=== PATIENT | female | born 1955 | race Two or more races ===

== ENCOUNTER 2017-06-26 06:04 | Day surgery (SDC) | payer OTHER ==
[2017-06-24 19:26] VITALS: BMI 48.8
[2017-06-26] MEDS ORDERED: PROPOFOL 20 ML ONE (07:47)
[2017-06-26] MEDS ORDERED: MIDAZOLAM HCL 2 MG/2 ML SINGLE DOSE VIAL ONE (07:47)
[2017-06-26] MEDS ORDERED: LIDOCAINE HCL/PF 2% SDV 5ML VIAL ONE (07:47)
--- NOTE | 2017-06-26 07:51 | HP ---
Past Medical History - Primary Care Physician PCP:: Roxana Chambers - Admission Chief Complaint: 61 yrs , h/o PMB on & off since november. continuous bleeding presently for last 7 days History of Present Illness: h/o menopause 10 years ago. ptc/o vaginal bleeding on & off since month of November us was done , was reported ut 7..4x3.7x 5x.1 cm. em thickness 1.7 cm , both adnexa normal EM BX was attempted as an outpatient was failed , v she is not sexually active. + History Source: Patient Limitations to Obtaining History: Language Barrier (daughter interprets .. pt is from [place]) - Past Medical History [employer]W: No: Alzheimer's, CVA, Dementia, Migraine, Multiple Sclerosis, Peripheral Neuropathy, Parkinson's, Seizure, Syncope, TIA, Vertigo, Other Cardiovascular: Yes: HTN, Hyperlipdemia Pulmonary: No: Asthma, Bronchitis, Cancer, COPD, O2 Dependent, Pneumonia, Previously Intubated, Pulmonary Embolus, Pulmonary Fibrosis, Sleep Apnea, Other Gastrointestinal: No: Ascites, Cancer, Constipation, Crohn's Disease, Diverticulitis, Diverticulosis, Esophageal Varices, Gastritis, GERD, GI Bleed, Hemorrhoids, Hiatal Hernia, Inflamatory Bowel Disease, Irritable Bowel Disease, Pancreatitis, Peptic Ulcer Disease, Ulcerative Colitis, Other Hepatobiliary: Yes: Cholelithiasis (lap choly done) Renal/: Yes: UTI (rx nitrofurantoin) Reproductive: Yes: Other ([facility] 05[facility]07[facility]17 [facility] ...: 5 ...Para: 4 ...Term: 4 ($ , LD 1985) ...Spon : 1 Heme/Onc: No: Anemia Infectious Disease: No: AIDS, HIV, Tuberculosis Psych: No: Addictions, Anxiety, Bipolar, Depression, Panic Endocrine: Yes: Other (Obesity) - Past Surgical History Past Surgical History: Yes: Cholecystectomy (lap choly 2008) Hx Myomectomy: No Hx Transabdominal Cerclage: No Additional Surgical History: Abdominoplasty 2001 in [place] - Smoking History Smoking history: Never smoked Have you smoked in the past 12 months: No - Alcohol/Substance Use Hx Alcohol Use: No History of Substance Use: reports: None Home Medications - Allergies Allergies/Adverse Reactions: Allergies Allergy/AdvReac Type Severity Reaction Status Date / Time No Known Drug Allergies Allergy Verified 06/26/17 06:47 - Home Medications Home Medications: Ambulatory Orders Aspirin Coated [Ecotrin -] 81 mg PO DAILY 06/24/17 Atenolol [Tenormin -] 50 mg PO DAILY 06/24/17 Enalapril Maleate [Vasotec -] 10 mg PO BID 06/24/17 Nitrofurantoin Monohyd/M-Cryst [Macrobid -] 100 mg PO BID 06/24/17 Acetaminophen [Tylenol .Regular Strength -] 650 mg PO Q4H PRN tablet 06/26/17 Physical Exam-WHITESMITH Vital Signs: Vital Signs Temperature 97.6 F 06/26/17 06:44 Pulse Rate 58 L 06/26/17 06:44 Respiratory Rate 20 06/26/17 06:44 Blood Pressure 151/70 06/26/17 06:44 O2 Sat by Pulse Oximetry (%) 99 06/26/17 06:43 Constitutional: Yes: Well Nourished, Obese Eyes: Yes: WNL HENT: Yes: WNL, Normocephalic Neck: Yes: WNL Cardiovascular: Yes: WNL, Regular Rate and Rhythm Respiratory: Yes: WNL, CTA Bilaterally Gastrointestinal: Yes: WNL, Normal Bowel Sounds ...Rectal Exam: Yes: WNL Pelvis: Yes: WNL. No: Mass External Genitalia: Yes: Normal Internal Exam Deferred: Yes Vaginal Exam: Yes: Normal, Bleeding Cervix: Yes: Normal, Bleeding Uterus: Yes: Normal, Freely Moveable, Anteverted. No: Tender Adnexa: Normal: Bilateral, Not Palpable: Bilateral (not tender) Breast(s): Yes: WNL. No: Mass Musculoskeletal: Yes: WNL Extremities: No: Calf Tenderness Edema: No Integumentary: Yes: Incision (abdominoplasty scar in lower abdomen) Neurological: Yes: WNL, Alert, Oriented ...Motor Strength: WNL Psychiatric: Yes: WNL, Alert, Oriented Problem List - Problem (1) Post-menopausal bleeding Code(s): N95.0 - POSTMENOPAUSAL BLEEDING (2) Hypertension Code(s): I10 - ESSENTIAL (PRIMARY) HYPERTENSION Qualifiers: Hypertension type: essential hypertension Qualified Code(s): I10 - Essential (primary) hypertension (3) Morbid obesity due to excess calories Code(s): E66.01 - MORBID (SEVERE) OBESITY DUE TO EXCESS CALORIES Assessment/Plan 61 yrs , PMB , em thickness 1.7 cm , h/o Ess hypertension, Obesity Plan Diagnostic Hysteroscopy, D&C
[2017-06-26] MEDS ORDERED: IBUPROFEN 400 MG TABLET (FP) PO PRN (08:45)
[2017-06-26] MEDS ORDERED: ACETAMINOPHEN 325 MG TABLET (FP) PO PRN (08:45)
[2017-06-26] MEDS ORDERED: IBUPROFEN 800 MG/8 ML IJ IVPB PRN (08:50)
[2017-06-26] MEDS ORDERED: oxyCODONE HCL 5 MG TABLET PO PRN (08:50)
[2017-06-26] MEDS ORDERED: ONDANSETRON 4 MG/2 ML VIAL IVPUSH PRN (08:50)
[2017-06-26] MEDS ORDERED: LACTATED RINGERS SOLUTION 1,000 ML IV SCH (09:00)
--- NOTE | 2017-06-26 09:01 | OP ---
Operative Note - Note: Operative Date: 06/26/17 Pre-Operative Diagnosis: postmenopausal bleeding Operation: hysteroscopy, D&C polypectomy Findings: cervicall polyp noted removed hysteroscopic view normal of endometrial cavity, eMC done utero cervical length 7 cm large rectocele , moderate cystocee & lax perineum Post-Operative Diagnosis: Other (cervical polyp) Surgeon: Roxana Chambers Anesthesiologist/[place] [employer]AC[employer] TIER: Stephani Palacios Anesthesia: General Specimens Removed: cervical polyp,. ecc. emc Fluid Volume Replaced (mls): 600 Operative Report Dictated: Yes
[2017-06-26 10:13] VITALS: TEMP 97.6
--- NOTE | 2017-06-26 10:40 | OP ---
DATE OF OPERATION: 06/26/2017 PREOPERATIVE DIAGNOSIS: Postmenopausal bleeding. OPERATION DONE: Diagnostic hysteroscopy, dilatation and curettage, and cervical polypectomy. POSTOPERATIVE DIAGNOSES: Postmenopausal bleeding and cervical polyp. SURGEON: Roxana Chambers MD ANESTHESIOLOGIST: Stephani Palacios MD ANESTHESIA: General. FINDINGS: This is a 61-year-old, 5, para 4-0-1-4, and history of menopause in 2006. Her last Pap smear was May 07, 2017, which was normal. She complains of postmenopausal bleeding since the month of November on and off and continuously bleeding for the last 7 days. Pelvic ultrasound shows the endometrium is 1.7 cm thick and uterus is 7 cm. DESCRIPTION OF PROCEDURE: Patient is taken to the operating room table, and patient is obese. She was given general anesthesia. She was placed in the lithotomy position. Pubis, perineum, and vagina were painted with Betadine, draped in usual manner. Timeout was done. Deeper weighted speculum was put. Trendelenburg position was given. The cervix was visualized. Incidentally, before putting the instruments, pelvic examination was done. Uterus was retroverted, normal size. Adnexa were not palpable, and the cervix was posterior. The vagina shows lax perineum and large rectocele and moderate cystocele. The deep weighted speculum was put. Anterior lip of the cervix was held with a single-tooth tenaculum. Cervical polyp was noted, and hysteroscope was introduced. Cervical polyp noted and advanced into the endometrial cavity. Endometrial cavity appeared to be normal. Both cornual ostia were visualized and then posteriorly. Endometrium also was normal. Hysteroscope was removed. Then, the cervix was dilated up to number 10 dilator. With the polyp forceps, polyp was removed. Then, ECC was done and submitted separately. Then, the endometrial cavity was curetted. No tissue was obtained. Patient tolerated the procedure well, and a re-examination was done. No longer was the polyp noted, and the patient was transferred to the recovery room in stable condition. Estimated blood loss is less than 2 mL. She is transferred to the recovery room in stable condition. Alissa [id number]
[2017-06-26 11:33] VITALS: BP 125/60; PULSE 65
--- NOTE | 2017-06-27 11:35 | PATH ---
Surgical Pathology Report Patient Name: DANIELLE FELIX [facility]. Rec. #: [id number] /Age/Gender: 1955 (Age: 61) / F Account: [id number] Location: [facility] Taken: 06/26/2017 Received: 06/26/2017 Reported: 06/27/2017 Physicians: Roxana Chambers M.D. Specimen(s) Received A: CERVICAL POLYP B: ENDOMETRIAL CURETTINGS C: ENDOCERVICAL CURETTINGS Clinical History Postmenopausal bleeding since November 2016 61-year-old LD 1986 Menopause 2006 Final Diagnosis A. CERVIX, POLYPECTOMY: BENIGN MIXED CERVICAL AND ENDOMETRIAL POLYP. B. ENDOMETRIUM, CURETTING: PROLIFERATIVE ENDOMETRIUM WITH AREAS OF STROMAL AND GLANDULAR BREAKDOWN. NO ENDOMETRIAL HYPERPLASIA OR CARCINOMA IDENTIFIED. C. ENDOCERVIX, CURETTING: BENIGN CERVICAL TISSUE. Comment: Recommend correlation with clinical findings and follow up as clinically indicated. Electronically Signed Tomás Mcmanus M.D. Gross Description A. Received in formalin labeled "cervical polyp," is a 1.3 x 0.5 x 0.3 cm hannon, polypoid portion of soft tissue. The less than is submitted in toto in one cassette. B. Received in formalin labeled "endometrial curettage," is a 0.7 x 0.5 x 0.2 cm aggregate of hannon-brown soft tissue fragments. The formalin is filtered and the specimen is entirely submitted in one cassette. C. Received in formalin labeled "endocervical curettage," is a 0.8 x 0.8 x 0.1 cm aggregate of blood-tinged mucus, possibly containing soft tissue fragments. The formalin is filtered and the specimen is entirely submitted in one cassette. 06/26/2017 saudi06/26/2017
== END 2017-06-26 11:33 | disposition home or self-care (01) ==
LOC: JASU-SURG 06:04
PROVIDERS: ATTEND Obstetrics & Gynecology
PROC: 0UJD8ZZ Inspection of Uterus and Cervix, Via Natural or Artificial Opening Endoscopic (ICD-10-PCS; 2017-06-26)
PROC: 0UBC7ZX Excision of Cervix, Via Natural or Artificial Opening, Diagnostic (ICD-10-PCS; principal; 2017-06-26 08:00)
PROC: 0UDB7ZX Extraction of Endometrium, Via Natural or Artificial Opening, Diagnostic (ICD-10-PCS; 2017-06-26 08:00)
DX: N95.0 Postmenopausal bleeding (principal); N84.1 Polyp of cervix uteri
CPT/HCPCS: 86850; 86900; 86901; 88305-TC; 94760

== ENCOUNTER 2017-07-08 07:11 | Day surgery (SDC) | payer OTHER ==
[2017-07-04 15:38] VITALS: BMI 48.4
[2017-07-08] MEDS ORDERED: EPINEPHrine/PF 1 MG/1 ML (1:1,000) AMPULE ONE (07:24)
[2017-07-08] MEDS ORDERED: LIDOCAINE HCL/PF 1% SDV 5ML VIAL ONE (07:24)
[2017-07-08] MEDS ORDERED: TETRACAINE 0.5% OPHTH SOLN 2 ML BOTTLE ONE (07:24)
[2017-07-08] MEDS: MOXIFLOXACIN HCL 0.5% OPHTHALMIC 3 ML BOTTLE OP SCH ×3 (07:30→07:50)
[2017-07-08] MEDS: TROPICAMIDE 1% OPHTH SOLN 15 ML BOTTLE OP SCH ×3 (07:30→07:50)
[2017-07-08] MEDS: CYCLOPENTOLATE HCL 1% OPHTH SOLN 2 ML BOTTLE OP SCH ×3 (07:30→07:50)
[2017-07-08] MEDS: PHENYLEPHRINE 2.5% OPHTH SOLN 15 ML BOTTLE OP SCH ×3 (07:30→07:50)
[2017-07-08 07:31] VITALS: TEMP 97.5
[2017-07-08] MEDS ORDERED: MIDAZOLAM HCL 2 MG/2 ML SINGLE DOSE VIAL ONE (08:50)
--- NOTE | 2017-07-08 09:02 | HP ---
History & Physical Update - History History: No Change - Physical Physical: No Change - Assessment Assessment: No Change - Plan Plan: No Change
[2017-07-08] MEDS ORDERED: POVIDONE-IODINE 5% OPHTHALMIC PREP 30 ML SOLUTION OS ONE (09:17)
[2017-07-08] MEDS ORDERED: CHONDROITIN SU A/HYALUR SOD 1 KIT IO ONE (09:19)
[2017-07-08] MEDS: TOBRA 0.3%/DEXAMETH 0.1% OPHTHALMIC SUSP 2.5 ML BTL ONE ×2 (09:40)
[2017-07-08 11:45] VITALS: BP 119/58; PULSE 68
--- NOTE | 2017-07-09 08:53 | OP ---
DATE OF OPERATION: 07/08/2017 SURGEON: Alo Ho MD PREOPERATIVE DIAGNOSIS: Cataract, left eye. OPERATION: Phacoemulsification and intraocular lens implantation, left eye. POSTOPERATIVE DIAGNOSIS: Cataract, left eye. ANESTHESIA: Topical. COMPLICATIONS: None. BLOOD LOSS: None. SPECIMEN: None. BRIEF HISTORY: The patient is a 61-year-old woman with a past medical history of hypertension who presented with decreased vision in the left eye down to 20/50 due to a 2+ nuclear sclerotic lens. After the risks, benefits, and alternatives to cataract surgery were discussed with the patient, she consented to surgery for the left eye. DESCRIPTION OF PROCEDURE: The patient was brought to the operating room, prepped and draped in the usual sterile fashion, and an eyelid speculum was inserted in the left eye, a paracentesis was made, and the anterior chamber was inflated with nonpreserved lidocaine. This was followed by injection of Viscoat. A groove was made in the superotemporal clear cornea which was tunneled forward with a crescent blade. The anterior chamber was entered with a 2.75 keratome. The cystotome was used to make an incision at the center of the capsule, and a continuous curvilinear capsulorrhexis was created. The lens was hydrodissected until it was found to rotate freely within the capsular bag. Phacoemulsification was then used to remove the lens in its entirety. Irrigation and aspiration were used to remove residual cortical material. The anterior chamber and capsular bag were reinflated with Provisc, and a 12.0 diopter [id number] AcrySof intraocular lens was injected into the capsular bag using the [place] injector. The lens was dialed into place using the [place] hook. Irrigation and aspiration were used to remove residual viscoelastic. The wound was stromally hydrated until it was found to be watertight and the eye was in an appropriate pressure. The eyelid speculum was removed from the eye, and TobraDex drops and a clear shield were placed over the left eye. The patient was transferred to the recovery room in stable condition and will follow up tomorrow. Alissa [id number]
== END 2017-07-08 11:15 | disposition home or self-care (01) ==
LOC: JASU-SURG 07:11
PROVIDERS: ATTEND Ophthalmology
PROC: 08RK3JZ Replacement of Left Lens with Synthetic Substitute, Percutaneous Approach (ICD-10-PCS; principal; 2017-07-08 09:00)
DX: H25.12 Age-related nuclear cataract, left eye (principal)

== ENCOUNTER 2021-05-28 04:35 | Day surgery (SDC) | payer OTHER ==
[2021-05-24 11:39] VITALS: BMI 50.8
[2021-05-28] MEDS ORDERED: MIDAZOLAM HCL 2 MG/2 ML SINGLE DOSE VIAL ONE ×2 (10:45→10:46)
[2021-05-28 14:18] VITALS: BP 113/61; PULSE 75; TEMP 97.4
== END 2021-05-28 14:07 | disposition home or self-care (01) ==
LOC: JASU-SURG 04:35
PROVIDERS: ATTEND Urology
PROC: 0TF3XZZ Fragmentation in Right Kidney Pelvis, External Approach (ICD-10-PCS; principal; 2021-05-28 10:30)
DX: N20.0 Calculus of kidney (principal)